=== PATIENT | female | born 1965 | race Caucasian/White ===

== ENCOUNTER 2018-03-29 15:42 | Emergency (ER) | payer SELFPAY ==
[2018-03-29] MEDS ORDERED: KETAMINE HCL* 50 MG/ML 10 ML VIAL ONE (15:54)
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
[2018-03-29] MEDS ORDERED: KETAMINE HCL* 50 MG/ML 10 ML VIAL IV ONE (16:02)
[2018-03-29 16:26] LABS: ABS Basophils 0.1 10^3/ul (0-0.2); ABS Eosinophils 0.1 10^3/ul (0-0.6); ABS Lymphocytes 1.8 10^3/ul (1.0-4.8); ABS Monocytes 0.3 10^3/ul (0-0.8); ABS Neutrophils 4.8 10^3/ul (1.5-7.7); ABS Nucleated RBC 0 10^3/ul; Eosinophil % 2.1 %; Hematocrit 42 % (35-47); Hemoglobin 14.6 g/dl (12.0-16.0); Mean Corpuscular HGB Conc 35 g/dl (31-36); Mean Corpuscular Hemoglobin 33 pg (27-31); Mean Corpuscular Volume 94 fL (80-97); Nucleated Red Blood Cells % 0.1; Platelet Count 256 10^3/ul (150-450); Red Blood Count 4.47 10^6/ul (4.00-5.40); Red Cell Distribution Width 12 % (10.5-15)
[2018-03-29 16:45] LABS: Urine Appearance Clear; Urine Bacteria Absent (Absent); Urine Bilirubin Negative (Negative); Urine Blood 1+ (Negative); Urine Color Colorless; Urine Glucose Negative (Negative); Urine Ketones Negative (Negative); Urine Nitrite Negative (Negative); Urine Protein Negative (Negative); Urine Red Blood Cell Absent (Absent); Urine Specific Gravity 1.002 (1.010-1.030); Urine Urobilinogen Negative (Negative); Urine White Blood Cell Absent (Absent)
[2018-03-29 17:05] LABS: BUN/Creatinine Ratio 13.2 (8-20); EGFR Non-African American 89.8 (>60); Potassium 3.7 mmol/L (3.5-5.0)
[2018-03-29 17:18] LABS: Barbiturates Urine Screen None Detected (None Detect); Benzodiazepine Urine Screen None Detected (None Detect); Urine Cannabinoids Screen None Detected (None Detect)
[2018-03-29 20:55] VITALS: BP 109/69
== END 2018-03-29 20:50 | disposition home or self-care (01) ==
LOC: ED 15:42
DX: S09.90XA Unspecified injury of head, initial encounter (principal); F14.10 Cocaine abuse, uncomplicated; F10.129 Alcohol abuse with intoxication, unspecified; R45.6 Violent behavior; Y04.0XXA Assault by unarmed brawl or fight, initial encounter; Y92.9 Unspecified place or not applicable
CPT/HCPCS: 36415; 70450; 80048; 80307; 80320; 81003; 81015; 85025; 96374; 99285; G0480